=== PATIENT | female | born 2000 | race Caucasian/White ===

== ENCOUNTER 2020-05-31 14:10 | Inpatient (IN) | payer MEDICAID ==
--- NOTE | 2020-05-31 17:28 | CRLUS ---
INDICATION: Limited OB care no record TECHNIQUE: Ultrasound OB pelvis transabdominal. Real-time newman-scale imaging of the fetus was performed as well as color Doppler and spectral Doppler analysis of the umbilical artery. COMPARISON: None available FINDINGS: Sonographic imaging demonstrates a single living intrauterine gestation. Fetus demonstrates a regular cardiac rate of 120 beats per minute. Fetus has a cephalic orientation. The placenta lies anterior without evidence of placenta previa. Amniotic fluid volume appears normal. The following biometric measurements were obtained: Biparietal diameter: 9.66 centimeter. Head circumference: 34.5 centimeter. Abdominal circumference: 35.9 centimeter. Femur length: 7.8 centimeter. The composite ultrasound gestational age is calculated at 39 weeks 6 days with an estimated sonographic due date of 06/01/2020. The weight is estimated at 3894 grams, the greater than 90th percentile. There is adequate diastolic blood flow within the umbilical artery. Overall limited anatomic survey with visualization the stomach, kidneys, bladder and 3 vessel cord with demonstration of a four-chamber heart. Intracranial structures, cervix, spine, and extremities are not visualized due to advanced age. IMPRESSION.: Single live intrauterine gestation measuring 39 weeks 6 days by ultrasound measurements. Moderately limited anatomic survey due to advanced age. Dictated by Berlin Mcintosh MD @ May 31 2020 5:11PM Signed by Dr. Berlin Mcintosh @ May 31 2020 5:27PM
[2020-05-31] MEDS ORDERED: Penicillin G Potassium 5 MILLUNITS in Sodium Chloride 0.9% 50 ML IV ONE (17:35)
[2020-05-31] MEDS ORDERED: Sodium Chloride 0.9% 1,000 ML IV SCH (17:45)
[2020-05-31] MEDS ORDERED: Sodium Chloride 0.9% 10 ML Syringe FLUSH PRN (17:57)
[2020-05-31] MEDS ORDERED: Acetaminophen 325 MG Tab PO PRN (17:57)
[2020-05-31] MEDS ORDERED: Calcium Carbonate 500 MG Tab.Chew PO PRN (17:57)
[2020-05-31] MEDS ORDERED: ePHEDrine 50 MG/ML SDV IVPUSH PRN (18:22)
[2020-05-31] MEDS ORDERED: Misoprostol 50 MCG (1/2 of 100 MCG) Tab PO ONE ×2 (18:28→22:30)
--- NOTE | 2020-05-31 19:05 | PCM.LDHP ---
L&D History of Present Illness - General Date of Service: 05/31/20 Admit Problem/Dx: Patient Status Order with Admit Dx/Problem 05/31/20 15:55 Admission Status [Patient Status] [ADT] Routine 05/31/20 17:57 Patient Status [ADT] Routine Admission Diagnosis/Problem Admission Diagnosis/Problem - Related Data Allergies/Adverse Reactions: Allergies Allergy/AdvReac Type Severity Reaction Status Date / Time adhesive Allergy Rash Verified 05/31/20 14:30 latex Allergy Rash Verified 05/31/20 14:30 red (food color) Allergy Hives Verified 05/31/20 14:31 Home Medications: Home Meds Pnv No.95/Ferrous Fum/Folic AC [ Vitamin Tablet] 1 tab PO DAILY 05/31/20 [History] H&P Review of Systems - Review of Systems: Review Of Systems: See Below General: Reports: No Symptoms HEENT: Reports: No Symptoms Pulmonary: Reports: No Symptoms Cardiovascular: Reports: No Symptoms Gastrointestinal: Reports: No Symptoms Genitourinary: Reports: No Symptoms Musculoskeletal: Reports: No Symptoms Skin: Reports: No Symptoms Psychiatric: Reports: No Symptoms Neurological: Reports: No Symptoms Hematologic/Lymphatic: Reports: No Symptoms Immunologic: Reports: No Symptoms L&D Exam - Exam Exam: See Below - Vital Signs Vital Signs: Last Vital Signs Temp 35.9 C L 05/31/20 15:30 Pulse 131 H 05/31/20 15:30 Resp 18 05/31/20 15:30 BP 112/75 05/31/20 15:30 Pulse Ox 96 05/31/20 15:30 - OB Specific Contraction Frequency (min): 0 Contraction Intensity: none Movement: Active Heart Tones: Present Heart Rate (FHR) Variability: Moderate (6-25 bmp) Presentation: Vertex - Wright Score Wright Score Cervix Position: Midposition Wright Score Consistency: Soft Wright Score Effacement: 31-50% Wright Score Dilation: Closed Wright Score 's Station: -3 Wright Score Total: 4 - Exam General: Alert, Oriented, Cooperative HEENT: PERRLA, Conjunctiva Clear, EACs Clear, EOMI, Hearing Intact, Mucosa Moist & [place], Nares Patent, Normal Nasal Septum, Posterior Pharynx Clear, TMs Clear Neck: Supple, Trachea Midline Lungs: Clear to Auscultation, Normal Respiratory Effort Cardiovascular: Regular Rate, Regular Rhythm GI/Abdominal Exam: Normal Bowel Sounds, Soft, Non-Tender, No Organomegaly, No Distention, No Abnormal Bruit, No Mass, Pelvis Stable Rectal Exam: Normal Exam, Normal Rectal Tone Genitourinary: Normal external exam, Normal bimanual exam, Normal speculum exam Back Exam: Normal Inspection, Full Range of Motion Extremities: Normal Inspection, Normal Range of Motion, Non-Tender, No Pedal Edema, Normal Capillary Refill Skin: Warm, Dry, Intact Neurological: Cranial Nerves Intact, Reflexes Equal Bilateral Psychiatric: Alert, Normal Affect, Normal Mood - Patient Data Lab Results Last 24 hrs: Laboratory Results - last 24 hr 05/31/20 05/31/20 05/31/20 Range/Units 14:46 14:46 15:56 WBC (4.5-11.0) K/uL RBC (3.30-5.50) M/uL Hgb (12.0-15.0) g/dL Hct (36.0-48.0) % MCV (80-98) fL MCH (27-31) pg MCHC (32-36) % Plt Count (150-400) K/uL Neut % (Auto) (36-66) % Lymph % (Auto) (24-44) % Creek % (Auto) (2-6) % Eos % (Auto) (2-4) % Baso % (Auto) (0-1) % Urine Color Yellow (YELLOW) Urine Appearance Clear (CLEAR) Urine pH 7.0 (5.0-8.0) Ur Specific [place] 1.020 (1.008-1.030) Urine Protein Negative (NEGATIVE) mg/dL Urine Glucose (UA) Negative (NEGATIVE) mg/dL Urine Ketones Negative (NEGATIVE) mg/dL Urine Occult Blood Negative (NEGATIVE) Urine Nitrite Negative (NEGATIVE) Urine Bilirubin Negative (NEGATIVE) Urine Urobilinogen 0.2 (0.2-1.0) EU/dL Ur Leukocyte Esterase Negative (NEGATIVE) Urine RBC 0-5 (0-5) Urine WBC 0-5 (0-5) Ur Epithelial Cells Many Amorphous Sediment Occasional Urine Bacteria Few Urine Mucus Rare Membrane Rupture Positive H (NEGATIVE) Urine Opiates Screen Negative (NEGATIVE) Ur Oxycodone Screen Negative (NEGATIVE) Urine Methadone Screen Negative (NEGATIVE) Ur Propoxyphene Screen Negative (NEGATIVE) Ur Barbiturates Screen Negative (NEGATIVE) Ur Tricyclics Screen Negative (NEGATIVE) Ur Phencyclidine Scrn Negative (NEGATIVE) Ur Amphetamine Screen Negative (NEGATIVE) U Methamphetamines Scrn Negative (NEGATIVE) Urine MDMA Screen Negative (NEGATIVE) U Benzodiazepines Scrn Negative (NEGATIVE) U Cocaine Metab Screen Negative (NEGATIVE) U Marijuana (THC) Screen Negative (NEGATIVE) SARS CoV-2 RNA Rapid ONDINA Blood Type Gel Antibody Screen 05/31/20 05/31/20 05/31/20 Range/Units 16:17 16:17 16:24 WBC 13.6 H (4.5-11.0) K/uL RBC 4.44 (3.30-5.50) M/uL Hgb 11.8 L (12.0-15.0) g/dL Hct 38.3 (36.0-48.0) % MCV 86 (80-98) fL MCH 27 (27-31) pg MCHC 31 L (32-36) % Plt Count 139 L (150-400) K/uL Neut % (Auto) 75 H (36-66) % Lymph % (Auto) 16 L (24-44) % Creek % (Auto) 8 H (2-6) % Eos % (Auto) 0 L (2-4) % Baso % (Auto) 0 (0-1) % Urine Color (YELLOW) Urine Appearance (CLEAR) Urine pH (5.0-8.0) Ur Specific [place] (1.008-1.030) Urine Protein (NEGATIVE) mg/dL Urine Glucose (UA) (NEGATIVE) mg/dL Urine Ketones (NEGATIVE) mg/dL Urine Occult Blood (NEGATIVE) Urine Nitrite (NEGATIVE) Urine Bilirubin (NEGATIVE) Urine Urobilinogen (0.2-1.0) EU/dL Ur Leukocyte Esterase (NEGATIVE) Urine RBC (0-5) Urine WBC (0-5) Ur Epithelial Cells Amorphous Sediment Urine Bacteria Urine Mucus Membrane Rupture (NEGATIVE) Urine Opiates Screen (NEGATIVE) Ur Oxycodone Screen (NEGATIVE) Urine Methadone Screen (NEGATIVE) Ur Propoxyphene Screen (NEGATIVE) Ur Barbiturates Screen (NEGATIVE) Ur Tricyclics Screen (NEGATIVE) Ur Phencyclidine Scrn (NEGATIVE) Ur Amphetamine Screen (NEGATIVE) U Methamphetamines Scrn (NEGATIVE) Urine MDMA Screen (NEGATIVE) U Benzodiazepines Scrn (NEGATIVE) U Cocaine Metab Screen (NEGATIVE) U Marijuana (THC) Screen (NEGATIVE) SARS CoV-2 RNA Rapid [place] Negative Blood Type A POSITIVE Gel Antibody Screen Negative Result Diagrams: 05/31/20 16:17 - Problem List (1) Insufficient care in third trimester SNOMED Code(s): 3869697242151, 4183892419794 ICD Code: O09.33 - SUPRVSN OF PREG W INSUFFICIENT ANTENAT CARE, THIRD TRIMESTER Status: Acute Current Visit: Yes (2) Obesity affecting in third trimester SNOMED Code(s): 503414912310, 748350877048 ICD Code: O99.213 - OBESITY COMPLICATING , THIRD TRIMESTER Status: Acute Current Visit: Yes (3) High risk in young multigravida SNOMED Code(s): 04590200, 537422011 ICD Code: O09.629 - SUPERVISION OF YOUNG MULTIGRAVIDA, UNSPECIFIED TRIMESTER Status: Acute Current Visit: Yes (4) Social problem SNOMED Code(s): 757101872 ICD Code: Z65.9 - PROBLEM RELATED TO UNSPECIFIED PSYCHOSOCIAL CIRCUMSTANCES Status: Acute Current Visit: Yes (5) PROM (premature rupture of membranes) SNOMED Code(s): 21652141 ICD Code: O42.90 - NATHALIA ROM, 7TH0 BETW RUPT & ONST LABR, UNSP WEEKS OF GEST Status: Acute Current Visit: Yes Qualifiers: PROM onset of labor timing: onset of labor more than 24 hours following rupture PROM gestational age: full term Qualified Code(s): O42.12 - Full- term premature rupture of membranes, onset of labor more than 24 hours following rupture Problem List Initiated/Reviewed/Updated: Yes Orders Last 24hrs: Active Orders 24 hr Category Date Time Status Admission Status [Patient Status] [ADT] Routine ADT 05/31/20 15:55 Active Patient Status [ADT] Routine ADT 05/31/20 17:57 Active Ambulate [RC] PER UNIT ROUTINE Care 05/31/20 17:57 Active Communication Order [RC] ASDIRECTED Care 05/31/20 17:57 Active Communication Order [RC] ASDIRECTED Care 05/31/20 18:22 Active Heart Tones [RC] PER UNIT ROUTINE Care 05/31/20 17:57 Active Non Stress Test [RC] Click to Edit Care 05/31/20 17:57 Active Insert Urinary Catheter [OM.PC] ASDIRECTED Care 05/31/20 18:30 Ordered Local Anesthetic Infusion Pump [RC] ASDIRECTED Care 05/31/20 18:22 Active Notify Provider Vital Signs [RC] PRN Care 05/31/20 17:57 Active Notify Provider [RC] PRN Care 05/31/20 17:57 Active OB Check [OM.PC] Click to Edit Care 05/31/20 14:37 Ordered PCEA Epidural [RC] ASDIRECTED Care 05/31/20 18:22 Active PCEA Epidural [RC] ASDIRECTED Care 05/31/20 18:22 Active Up ad Erendira [RC] ASDIRECTED Care 05/31/20 17:57 Active Urinary Catheter Assessment [RC] ASDIRECTED Care 05/31/20 18:22 Active VTE/DVT Education [RC] Click to Edit Care 05/31/20 17:59 Active Vital Signs [RC] PER UNIT ROUTINE Care 05/31/20 17:57 Active Consult to Case Management/Dowel Maker [CONS] Cons 05/31/20 17:57 Active Routine Regular Diet [DIET] Diet 05/31/20 Dinner Active PATIENT RETYPE [BBK] Routine Lab 05/31/20 16:17 Results TYPE AND SCREEN [BBK] Routine Lab 05/31/20 16:17 Results Acetaminophen [TylenoL] Med 05/31/20 17:57 Active 650 mg PO Q4H PRN Calcium Carbonate [Tums] Med 05/31/20 17:57 Active 1,000 mg PO Q2H PRN Lactated Ringers [Ringers, Lactated] 1,000 ml Med 05/31/20 18:22 Active IV .BOLUS Ondansetron [Zofran] Med 05/31/20 17:57 Active 4 mg IV Q4H PRN Penicillin G Potassium [Pfizerpen] 2.5 millunits Med 05/31/20 22:00 Active Sodium Chloride 0.9% [Normal Saline] 50 ml IV Q4H Sodium Chloride 0.9% [Normal Saline] 1,000 ml Med 05/31/20 17:45 Active IV ASDIRECTED Sodium Chloride 0.9% [Saline Flush] Med 05/31/20 17:57 Active 10 ml FLUSH ASDIRECTED PRN ePHEDrine [ePHEDrine sulfate] Med 05/31/20 18:22 Active 10 mg IVPUSH ASDIRECTED PRN miSOPROStoL [Cytotec] Med 05/31/20 22:30 Once 50 mcg PO ONETIME ONE Convert IV to Saline Lock [OM.PC] Routine Oth 05/31/20 15:52 Ordered DVT/VTE Prophylaxis Reflex [OM.PC] Routine Oth 05/31/20 17:57 Ordered Epidural Catheter Management [OM.PC] Urgent Oth 05/31/20 18:22 Ordered Saline Lock Insert [OM.PC] Routine Oth 05/31/20 17:57 Ordered Resuscitation Status Routine Resus Stat 05/31/20 17:57 Ordered Medication Orders Acetaminophen (Tylenol) 650 mg PO Q4H PRN PRN Reason: Pain (Mild 1-3) and fever Calcium Carbonate/Glycine (Tums) 1,000 mg PO Q2H PRN PRN Reason: Indigestion Ephedrine Sulfate (Ephedrine Sulfate) 10 mg IVPUSH ASDIRECTED PRN PRN Reason: Hypotension Penicillin G Potassium 2.5 (millunits/ Sodium Chloride) 50 mls @ 100 mls/hr IV Q4H CORRINE Sodium Chloride (Normal Saline) 1,000 mls @ 0 mls/hr IV ASDIRECTED CORRINE Lactated Ringer's (Ringers, Lactated) 1,000 mls @ 999 mls/hr IV .BOLUS ONE Stop: 05/31/20 19:22 Misoprostol (Cytotec) 50 mcg PO ONETIME ONE Stop: 05/31/20 22:31 Ondansetron HCl (Zofran) 4 mg IV Q4H PRN PRN Reason: Nausea/Vomiting Sodium Chloride (Saline Flush) 10 ml FLUSH ASDIRECTED PRN PRN Reason: Keep Vein Open Assessment/Plan Comment:: 05/31/2020 19 yo here at 39 0/7 weeks gestation PROM around 0800 this am, was unsure what to do since no contractions so waited then went back to sleep and had gushing a few more times before coming into the hospital. Was amnisure positive on admission, states that she moved here in March but was waiting on insurance to establish care. PROM no contractions Insufficient care Social Problems Obesity in Labs-Unknown GBS, A positive, Hep B neg, RPR nonreactive, Rubella Immune, Rapid COVID negative Plan- Continue to monitor for labor Continue to monitor FHTs-NST every four hours with vital signs Start oral cytotec now then another dose in four hours then Pitocin to be started 4 hours after that dose of oral cytotec If no cervical change by am will plan primary per patient request and will be SROM for 24 hours at that point PCN G per protocol for unknown GBS Pain medication per patient request Limit cervical exams due to prolonged SROM When you start Pitocin will need continuous monitoring then Can be up ad erendira Regular diet till start of Pitocin then no more food or gets epidural IV fluids TKO unless needs hydration for procedure or FHTs Social Service Consult
[2020-05-31] MEDS ORDERED: hydrOXYzine HCl 25 MG Tab PO ONE (21:30)
[2020-05-31] MEDS: Penicillin G Potassium 2.5 MILLUNITS in Sodium Chloride 0.9% 50 ML IV SCH (23:03)
[2020-06-01] MEDS ORDERED: fentaNYL 100 MCG/2 ML SDV IVPUSH ONE (03:08)
[2020-06-01] MEDS: Penicillin G Potassium 2.5 MILLUNITS in Sodium Chloride 0.9% 50 ML IV SCH ×2 (03:12→07:09)
[2020-06-01] MEDS: Lactated Ringers 1,000 ML IV ONE ×2 (03:12→03:13)
[2020-06-01] MEDS: Ondansetron 4 MG/2 ML SDV IV PRN ×2 (04:22→16:09)
[2020-06-01] MEDS ORDERED: Lactated Ringers 1,000 ML IV SCH (05:15)
[2020-06-01] MEDS ORDERED: Ropivacaine 100 ML ONE (05:24)
--- NOTE | 2020-06-01 06:28 | ANES ---
DATE OF SERVICE: 06/01/2020 TIME: 529 I was called to the labor and delivery unit by Pam Bustillo to evaluate Ms. English for a labor epidural. This is her 1st baby. She is approximately 2 cm, off Pitocin, and having a fair amount of pain. They would like an epidural to see if she can relax. Risks and benefits of the procedure were explained to the patient. She wished to proceed with a labor epidural. TECHNIQUE: She was placed in a sitting position. Her back was prepped x3 with Betadine. 1% lidocaine skin local was used. The epidural was placed at L2-3 using a 17-gauge Tuohy needle and loss of resistance technique. The epidural had very good feel throughout, and the epidural space was easily identified. There was negative CSF, negative blood, and negative paresthesias noted. Therefore, a catheter was threaded to 15 cm skin. There was negative CSF, negative blood, and negative paresthesias with the catheter. A test dose of 1.5% lidocaine with epinephrine was given. This test dose was negative. The catheter was then secured with Tegaderm and tape, and the patient was placed in a supine position. 0.2% ropivacaine bolus of 12 mL was given. This bolus had good relief and her vital signs remained stable. Therefore, 0.2% ropivacaine drip was started at 12 mL/hr. The patient tolerated the procedure very nicely. Her vital signs remained stable throughout the procedure and nurse was with me for the entire procedure. We will continue to monitor her throughout her labor and delivery. Raymundo Araiza CRNA /[id number]
[2020-06-01] MEDS ORDERED: cefOXitin 1 GM Vial ONE (06:48)
--- NOTE | 2020-06-01 06:48 | PCM.PNLD ---
Labor Progress Note - VS & Meds Vital Signs: Last Vital Signs Temp 36.3 C 06/01/20 04:23 Pulse 90 06/01/20 03:33 Resp 16 06/01/20 03:33 BP 106/57 L 06/01/20 03:33 Pulse Ox 97 06/01/20 03:33 Active Medications: Current Medications Acetaminophen (Tylenol) 650 mg PO Q4H PRN PRN Reason: Pain (Mild 1-3) and fever Calcium Carbonate/Glycine (Tums) 1,000 mg PO Q2H PRN PRN Reason: Indigestion Ephedrine Sulfate (Ephedrine Sulfate) 10 mg IVPUSH ASDIRECTED PRN PRN Reason: Hypotension Penicillin G Potassium 2.5 (millunits/ Sodium Chloride) 50 mls @ 100 mls/hr IV Q4H [facility] Last Admin: 06/01/20 03:12 Dose: 100 mls/hr Documented by: Oxytocin/Sodium Chloride (Pitocin In Ns 20 Units/1,000 Ml) 20 unit in 1,000 mls @ 6 mls/hr IV TITRATE [facility]; Protocol Last Titration: 06/01/20 06:25 Dose: 0 munits/min, 0 mls/hr Documented by: Lactated Ringer's (Ringers, Lactated) 1,000 mls @ 125 mls/hr IV ASDIRECTED CORRINE Last Infusion: 06/01/20 05:52 Dose: 999 mls/hr Documented by: Ondansetron HCl (Zofran) 4 mg IV Q4H PRN PRN Reason: Nausea/Vomiting Last Admin: 06/01/20 04:22 Dose: 4 mg Documented by: Sodium Chloride (Saline Flush) 10 ml FLUSH ASDIRECTED PRN PRN Reason: Keep Vein Open Discontinued Medications Fentanyl (Sublimaze) 100 mcg IVPUSH ONETIME ONE Stop: 06/01/20 03:09 Last Admin: 06/01/20 03:30 Dose: 100 mcg Documented by: Hydroxyzine HCl (Atarax) 100 mg PO ONETIME ONE Stop: 05/31/20 21:31 Last Admin: 05/31/20 23:02 Dose: 100 mg Documented by: Penicillin G Potassium 5 (millunits/ Sodium Chloride) 50 mls @ 100 mls/hr IV ONETIME ONE Stop: 05/31/20 18:04 Last Admin: 05/31/20 17:57 Dose: 100 mls/hr Documented by: Sodium Chloride (Normal Saline) 1,000 mls @ 0 mls/hr IV ASDIRECTED CORRINE Lactated Ringer's (Ringers, Lactated) 1,000 mls @ 999 mls/hr IV .BOLUS ONE Stop: 05/31/20 19:22 Last Admin: 06/01/20 03:13 Dose: Not Given Documented by: Ropivacaine (Naropin 0.2%) Confirm Administered Dose 100 mls @ as directed .ROUTE .STK-MED ONE Stop: 06/01/20 05:25 Misoprostol (Cytotec) 50 mcg PO ONETIME ONE Stop: 05/31/20 18:29 Last Admin: 05/31/20 19:10 Dose: 50 mcg Documented by: Misoprostol (Cytotec) 50 mcg PO ONETIME ONE Stop: 05/31/20 22:31 Last Admin: 05/31/20 23:02 Dose: 50 mcg Documented by: - Uterine Contractions Uterine Monitoring Mode: External [place] Contraction Frequency (min): patien reports every 3-8 minutes Contraction Duration (sec): 40-60 Contraction Intensity: Strong Uterine Resting Tone: Soft - Monitoring Heart Rate (FHR) Variability: Moderate (6-25 bmp) Accelerations: Present, 15x15 Decelerations: Late Strip Review: Category II - Vaginal Exam Dilation (cm): 2 Effacement (Percent): 80 Station: -1 Cervical Position: Midposition Sterile Vaginal Exam Performed By: Pam Bustillo Vaginal Exam Comment: Almost midposition. - Labor Progress (Free Text) Labor Progress: 06/01/2020 Patient has been very slowly progressing all night. Did start alesha with oral cytotec then started IV pitocin, did not tolerate contractions so decision was made for epidural. Patient now comfortable. FHTs had been category one all night now is beginning to show stress with late decelerations and one prolonged late deceleration. Pitocin was shut off, O2 applied, IV bolus initiated, SVE unchanged from earlier exam by RN> Decision was made to proceed with primary c- section and patient is agreeable and wants this done. OR crew notified and Dr. Andersen Surgeon notified. Plan- Continue to monitor labor Continue to monitor FHTs Pitocin to remain off Continue PCN G till we go to OR Plan for a primary and Dr. Andersen will assume care of patient
[2020-06-01] MEDS ORDERED: Phenylephrine 1% 10 MG/ML SDV ONE (06:54)
[2020-06-01] MEDS ORDERED: Sodium Chloride 0.9% 20 ML ONE (06:54)
[2020-06-01] MEDS ORDERED: ePHEDrine 50 MG/ML SDV ONE (06:54)
[2020-06-01] MEDS ORDERED: Ondansetron 4 MG/2 ML SDV ONE (06:54)
[2020-06-01] MEDS ORDERED: Oxytocin 10 Units/1 ML SDV ONE ×2 (06:54→07:26)
[2020-06-01] MEDS ORDERED: Bupivacaine 0.5% 30 ML SDV ONE (06:56)
[2020-06-01] MEDS ORDERED: cefOXitin 2 GM Vial ONE (07:17)
[2020-06-01] MEDS ORDERED: Sodium Chloride 0.9% 10 ML ONE ×3 (07:22→19:48)
[2020-06-01] MEDS ORDERED: Morphine PF 10 MG/10 ML SDV ONE ×2 (07:39→19:48)
[2020-06-01] MEDS ORDERED: hydrOXYzine HCL 100 MG/2 ML SDV IM PRN (09:42)
[2020-06-01] MEDS: Acetaminophen 500 MG Tab PO SCH ×4 (10:06→23:57)
[2020-06-01] MEDS: Dextrose 5%-Lactated Ringers 1,000 ML IV SCH ×3 (10:14→22:21)
[2020-06-01] MEDS ORDERED: diphenhydrAMINE 50 MG/ML SDV IVPUSH PRN (12:55)
[2020-06-01] MEDS ORDERED: Naloxone 0.4 MG/ML SDV IVPUSH PRN (13:00)
[2020-06-01] MEDS: Ibuprofen 600 MG Tab PO SCH ×2 (13:33→17:59)
[2020-06-01] MEDS: cefOXitin 2 GM in Sodium Chloride 0.9% 50 ML IV SCH ×2 (13:37→19:56)
[2020-06-01] MEDS ORDERED: Lanolin 100% Cream 40 GM Tube TOP PRN (19:29)
--- NOTE | 2020-06-01 21:03 | ANES ---
DATE OF SERVICE: 06/01/2020 PROCEDURE: Labor epidural re-bolus. Came in this evening to re-dose some Duramorph via the epidural for a young lady who had a C- section earlier today that we left her labor epidural in for pain management postop. The patient doing overall very well. States that the pain is very under control. Only taking some oral Tylenol every once in a while, mainly just having discomfort with fundus checks. Itchiness is very minimal according to the patient, so she would like to have another re- dose of her Duramorph today. She had gotten 5 mg via the epidural at 8 o'clock this morning, so I was going to give her another 5 mg dose today. Epidural was checked. No signs of cerebrospinal fluid. I then proceeded to give the patient 5 mL of sterile normal saline with additional 5 mg of Duramorph for a total of 10 mL. Was easily bolused in the epidural. The patient will be monitored closely. The patient has continuous O2 saturation monitoring on, and the patient is awake and not drowsy, but the nurse will keep a close eye on her for the next 15 minutes or so. Overall, the patient is doing very well. Blood pressure is good. So again, another 5 mg of Duramorph given this evening. Sridhar Swanson CRNA /[id number]
[2020-06-02] MEDS: Ibuprofen 600 MG Tab PO SCH ×4 (00:08→18:14)
[2020-06-02] MEDS: cefOXitin 2 GM in Sodium Chloride 0.9% 50 ML IV SCH ×4 (02:47→19:28)
[2020-06-02] MEDS: Acetaminophen 500 MG Tab PO SCH ×4 (04:55→22:11)
[2020-06-02] MEDS: Dextrose 5%-Lactated Ringers 1,000 ML IV SCH (06:08)
[2020-06-02] MEDS ORDERED: oxyCODONE 5 MG Tab PO PRN (07:36)
[2020-06-02] MEDS ORDERED: Dextrose 5%-Lactated Ringers 1,000 ML IV SCH (07:45)
[2020-06-02] MEDS: Bisacodyl 5 MG Tab PO SCH ×2 (11:24→22:11)
[2020-06-02] MEDS: Docusate Sodium 100 MG Cap PO SCH ×2 (11:25→22:11)
[2020-06-03] MEDS: Ibuprofen 600 MG Tab PO SCH ×3 (01:29→14:50)
[2020-06-03] MEDS: cefOXitin 2 GM in Sodium Chloride 0.9% 50 ML IV SCH ×2 (01:31→09:02)
[2020-06-03] MEDS: Acetaminophen 500 MG Tab PO SCH ×2 (03:42→09:02)
[2020-06-03] MEDS: Bisacodyl 5 MG Tab PO SCH (09:02)
[2020-06-03] MEDS: Docusate Sodium 100 MG Cap PO SCH (09:02)
--- NOTE | 2020-06-03 13:43 | DISCH ---
FINAL DIAGNOSIS: Term with failure to progress. OPERATIVE PROCEDURE: section. SUMMARY: This is a 19-year-old female presenting with term . On admission, she failed to progress beyond around 2 cm, and at that point, had decelerations. These stopped with discontinuation of the induction, and the decision was made to proceed with section. This was done with an epidural anesthetic without difficulty, and at this point, the patient and mother will be discharged home. Followup for the mother will be with Ingris Wood PA-C, at [facility] on Friday06/12/2020 at 10 a.m. Otherwise, Pam Bustillo CNM, and the nurse and pizza cook staff will arrange followup with mom as well as the baby. Medications at discharge include finishing off the vitamins, Motrin 600 mg q.i.d. p.r.n. pain #30 refill x1, and then Tylenol 1 g p.o. q.i.d. p.r.n. She will be instructed to leave the incision open, avoid lifting baby and car seat for 1 month postoperatively. /[id number]
--- NOTE | 2020-06-03 15:03 | PN ---
DATE OF SERVICE: 06/02/2020 The patient is postop day #1 from a section. Clinically, no major problems have been noted overnight. Urine output has been satisfactory. Pain control is good with the epidural catheter and that will be removed today. Continue the ibuprofen and Tylenol and add some oxycodone p.r.n. along with some bowel stimulation. Gold catheter will come out. We will advance to regular diet. Then she can get in the shower . Clayton Andersen MD /[id number]
--- NOTE | 2020-06-21 19:14 | OR ---
DATE OF PROCEDURE: 06/01/2020 SURGEON: Clayton Andersen MD PREOPERATIVE DIAGNOSIS: Term with failure to progress and transient decelerations. POSTOPERATIVE DIAGNOSIS: Term with failure to progress and transient decelerations. PROCEDURE: section (12835). REIMBURSEMENT ANALYST: Pam Bustillo CNM. ANESTHESIA: Spinal. INDICATION FOR PROCEDURE: This is a 19-year-old, presenting with term . She has been in labor for a long time and has failed to progress beyond 2 cm and then developed decelerations. With stopping the augmentation, the decelerations did stop, and the patient is to undergo section at this time. Potential risks of the procedure including bleeding, infection, injury to mother and/or baby were discussed, and the patient wishes to proceed. DETAILS OF PROCEDURE: The patient was taken to the operating room and placed in the supine position. Gold catheter was inserted. After spinal anesthetic had been placed, roll was placed underneath the right hip. Then, the abdomen prepped and draped. A transverse Pfannenstiel-type incision was made and carried down through the skin, subcutaneous tissue, and through the anterior rectus sheath. Rectus sheath flaps were then raised superiorly and peritoneal reflection of the bladder on the uterus was divided and reflected downward. A transverse lower uterine segment incision was made and a viable male was delivered through vertex presentation. Baby's presentation was occiput posterior, likely accounting for her failure to progress. Cord was clamped and cut and routine care given off the field per Pam Bustillo. membranes and placenta were then delivered without difficulty. The patient was given IV and intrauterine Pitocin and IV cefoxitin. Good uterine contractions were noted. Uterus was then closed with 2 layers of 2-0 Vicryl, stitch was also used to reapproximate the peritoneal reflection of the bladder on the uterus, and following this, the uterus was placed back into the pelvis. The midline musculature approximated with #2 Vicryl stitch as was the anterior rectus sheath and subcutaneous tissue was irrigated with cefoxitin-containing saline solution and closed with 2 layers of 3-0 and 4-0 Vicryl stitch deep and then surgical glue. The patient was taken to the recovery room in satisfactory condition. Per ACOG guidelines, Pam Bustillo's presence is indicated as an title assistant in this case. Clayton Andersen MD /[id number]
== END 2020-06-03 14:55 | disposition home or self-care (01) | DRG 788 ==
LOC: JP.OBCHECK 14:10 → JP.OB 15:55 → OBSVTOIN 06-01 07:43 → JP.MS 06-01 07:44
PROVIDERS: ADMIT Advanced Practice Midwife; ATTEND Surgery
PROC: 3E0R3BZ Introduction of Anesthetic Agent into Spinal Canal, Percutaneous Approach (ICD-10-PCS; principal; 2020-06-01)
PROC: 00HU33Z Insertion of Infusion Device into Spinal Canal, Percutaneous Approach (ICD-10-PCS; 2020-06-01)
PROC: 10D00Z1 Extraction of Products of Conception, Low, Open Approach (ICD-10-PCS; 2020-06-01)
PROC: 3E0P7VZ Introduction of Hormone into Female Reproductive, Via Natural or Artificial Opening (ICD-10-PCS; 2020-06-01)
PROC: 3E033VJ Introduction of Other Hormone into Peripheral Vein, Percutaneous Approach (ICD-10-PCS; 2020-06-01)
DX: O42.12 Full-term premature rupture of membranes, onset of labor more than 24 hours following rupture (principal); O99.214 Obesity complicating childbirth; O76 Abnormality in fetal heart rate and rhythm complicating labor and delivery; Z20.828 Contact with and (suspected) exposure to other viral communicable diseases; E66.9 Obesity, unspecified; Z65.9 Problem related to unspecified psychosocial circumstances; Z37.0 Single live birth; Z3A.39 39 weeks gestation of pregnancy
CPT/HCPCS: 36415; 51701; 59409; 76810; 80305-QW; 81001; 84112; 85025; 85027; 86850; 86900; 86901; 88307; 94762; 99211; A9270-GY; J0694; J2270; J2370; J2405; J2540; J2590; J2795; J3010; J3490; J7050; J7120; J7121; U0002

== ENCOUNTER 2021-12-28 13:58 | Emergency (ER) | payer MEDICAID ==
[2021-12-28] MEDS ORDERED: Lidocaine 1% with EPINEPHrine 1:100,000 50 ML MDV INFILT STA (16:23)
[2021-12-28] MEDS ORDERED: Bacitracin Oint 1 GM U/D Packet TOP ONE (16:23)
== END 2021-12-28 17:19 | disposition home or self-care (01) ==
LOC: JP.ED 13:58
DX: S61.217A Laceration without foreign body of left little finger without damage to nail, initial encounter (principal); E66.9 Obesity, unspecified; Z68.30 Body mass index [BMI] 30.0-30.9, adult; Z91.048 Other nonmedicinal substance allergy status; Z91.040 Latex allergy status; W25.XXXA Contact with sharp glass, initial encounter
CPT/HCPCS: 12001; 99281; 99283